=== PATIENT | female | born 1960 | race Two or more races ===

== ENCOUNTER 2019-01-17 14:46 | Emergency (ER) | payer OTHER ==
[2019-01-17 15:19] VITALS: TEMP 98; BMI 32.1
--- NOTE | 2019-01-17 16:00 | PDOC ---
History of Present Illness - General Chief Complaint: Chest Pain Stated Complaint: CHEST PRESSURE Time Seen by Provider: 01/17/19 15:39 Past History - Past Medical History Allergies/Adverse Reactions: Allergies Allergy/AdvReac Type Severity Reaction Status Date / Time No Known Allergies Allergy Verified 07/29/16 18:27 Home Medications: Ambulatory Orders Albuterol Sulfate Inhaler - [Ventolin Hfa Inhaler -] 1 - 2 inh PO QID 01/17/19 Cholecalciferol (Vitamin D3) [Vitamin D3] 2,000 unit PO DAILY 01/17/19 Diclofenac Sodium 75 mg PO DAILY 01/17/19 Enalapril Maleate 5 mg PO DAILY 01/17/19 Enalapril Maleate [Vasotec -] 5 mg PO DAILY 01/17/19 Fluticasone Furoate [Children's Flonase Sensimist] 5.9 ml NS BID 01/17/19 Fluticasone Propionate [Flovent Diskus] 50 mcg IH DAILY 01/17/19 Glipizide/Metformin HCl [Glipizide-Metformin 5-500 mg] 1 each PO BID 01/17/19 Ibuprofen [Motrin -] 800 mg PO TID 01/17/19 Linaclotide [Linzess] 72 mcg PO DAILY 01/17/19 Oxycodone HCl/Acetaminophen [Percocet 10-325 mg Tablet] 1 each PO DAILY Simvastatin 40 mg PO DAILY 01/17/19 Sucralfate Oral Suspension [Carafate *Oral Susp*] 1 gm PO BID 01/17/19 Anemia: No Asthma: No Cancer: No Cardiac Disorders: No CVA: No COPD: No CHF: No Dementia: No Diabetes: Yes GI Disorders: Yes (GERD) Disorders: No HTN: Yes Hypercholesterolemia: Yes Liver Disease: No Seizures: No Thyroid Disease: No - Surgical History Abdominal Surgery: No Appendectomy: No Cardiac Surgery: No Cholecystectomy: No Lung Surgery: No Neurologic Surgery: No Orthopedic Surgery: No - Immunization History Immunization Up to Date: Yes - Suicide/Smoking/Psychosocial Hx Smoking History: Never smoked Have you smoked in the past 12 months: No Information on smoking cessation initiated: No Hx Alcohol Use: No Drug/Substance Use Hx: No Substance Use Type: None Hx Substance Use Treatment: No *Physical Exam - Vital Signs Last Vital Signs Temp Pulse Resp BP Pulse Ox 98 F 73 20 128/84 95 01/17/19 15:16 01/17/19 15:16 01/17/19 15:16 01/17/19 15:16 01/17/19 15:16 Moderate Sedation - Procedure Monitoring Vital Signs: Procedure Monitoring Vital Signs Temperature 98 F 01/17/19 15:16 Pulse Rate 73 01/17/19 15:16 Respiratory Rate 20 01/17/19 15:16 Blood Pressure 128/84 01/17/19 15:16 O2 Sat by Pulse Oximetry (%) 95 01/17/19 15:16 ED Treatment Course - LABORATORY CBC & Chemistry Diagram: 01/17/19 16:43 01/17/19 16:41 *DC/Admit/Observation/Transfer Diagnosis at time of Disposition: Atypical chest pain - Discharge Dispostion Disposition: HOME Condition at time of disposition: Good Decision to Admit order: No - Referrals Referrals: Dre Rutherford MD [Primary Care Provider] - - Patient Instructions Printed Discharge Instructions: DI for Atypical Chest Pain Additional Instructions: Hoy te vieron por dolor en el pecho despus de que te vieran los doctores. DiGiorno y Shawn. Carlton anlisis de mehrdad, EKG y radiografa de trax fueron normales. No es probable que lobito sntomas se deban a un problema con el corazn o los pulmones. El dolor es probablemente un dolor muscular que empeora con la tos. Contine tomando todos lobito medicamentos caseros melanie lo prescribi carlton mdico de atencin primaria. Hoy no se hicieron cambios a carlton rgimen. ASEGRESE DE KATELYNN CARLTON OMEPRAZOLE TODOS LOS NÚÑEZ. Puede katelynn el contador de Tylenol segn sea necesario para el dolor. Katelynn melanie se indica en el prospecto. No exceda la dosis recomendada. Kandy un seguimiento con carlton mdico de atencin primaria en los prximos 3 a 4 núñez. Tendr que llamar para hacer levi percy. El nmero est incluido en anthony paquete. Levi copia de los resultados de hoy se adjunta a anthony paquete. Llvelo a la percy para que carlton mdico pueda revisarlos. Vaya al departamento de emergencias ms reid si carlton afeccin empeora o si marc que necesita levi evaluacin de emergencia adicional. You were seen today for chest pain after you were seen by Drs. Colvin and Shawn. Your blood work, EKG, and chest xray were normal. Your symptoms are not likely to because of a problem with your heart or lungs. The pain is likely a muscle pain made worse by coughing. Continue taking all of your home medications as your primary care doctor prescribed. No changes were made today to your regimen. BE SURE TO TAKE YOUR OMEPRAZOLE EVERYDAY. You can take over the counter Tylenol as needed for pain. Take as directed on the package insert. Do not exceed the recommended dosage. Follow up with your primary care doctor within the next 3-4 days. You will need to call to make an appointment. The number is included in this packet. A copy of todays results are attached to this packet. Take it to the appointment so your doctor can review them. Go to the nearest emergency department if your condition worsens or you feel like you need additional emergency evaluation. Print Language: CHILEAN - Post Discharge Activity
[2019-01-17] MEDS ORDERED: IBUPROFEN 600 MG TABLET (FP) PO ONE ×2 (16:07→16:42)
--- NOTE | 2019-01-17 16:19 | PDOC ---
Attending Attestation - Physicial Exam PE: 01/17/19 17:15 GENERAL: Awake, alert, and fully oriented, in no acute distress HEAD: No signs of trauma EYES: PERRLA, EOMI, sclera anicteric, conjunctiva clear ENT: Auricles normal inspection, hearing grossly normal, nares patent, oropharynx clear without exudates. Moist mucosa NECK: Normal ROM, supple, no lymphadenopathy, JVD, or masses LUNGS: Breath sounds equal, clear to auscultation bilaterally. No wheezes, and no crackles HEART: (+)Reproducible anterior chest wall pain. Regular rate and rhythm, normal S1 and S2, no murmurs, rubs or gallops ABDOMEN: Soft, nontender, normoactive bowel sounds. No guarding, no rebound. No masses EXTREMITIES: Normal range of motion, no edema. No clubbing or cyanosis. No cords, erythema, or tenderness NEUROLOGICAL: Cranial nerves II through XII grossly intact. Normal speech. SKIN: Warm, Dry, normal turgor, no rashes or lesions noted <Arely Leonardo - Last Filed: 01/17/19 17:15> - Resident Resident Name: Humberto Phelps - ED Attending Attestation I have performed the following: I have examined & evaluated the patient, The case was reviewed & discussed with the resident, I agree w/resident's findings & plan, Exceptions are as noted - HPI HPI: 01/17/19 20:51 58yo female with cp/cough/burning sensation since tuesday/tuesday. Pt states she stopped her meds because of gi upset. Started with burning sensation in chest, then cough- white sputum, and cp-anterior wall that is reproducible. Pt denies f/c. No n/v/d. No dysuria. No sore throat or rhinorrhea. Pt is nontoxic in appearance. No rash. Reproducible anterior chest wall pain. Stopped her omeprazole as well. - Medical Decision Making 01/17/19 16:19 I, Dr. Tita Brown, DO, attest that this document has been prepared under my direction and personally reviewed by me in its entirety. I further attest, that it accurately reflects all work, treatment, procedures and medical decision -making performed by me. 01/17/19 17:03 a/p: 58yo female with anterior cp, cough, and acid reflux since tuesday -reproducible anterior chest wall pain -lungs cta -initially started as acid reflux- scheduled for esophagram tomorrow with Dr. Huff -sent from PMD for abnl ekg- unchanged from prior and atypical cp -will send labs, will discuss with GI, will discuss with PMD -ekg, cxr, labs 01/17/19 18:05 trop is negative 01/17/19 20:51 repeat trop negative pt feeling better pt has been noncompliant with meds pt has appt for esophagram scheduled for tomorrow cp improved with meds stable for dc to home <Tita Brown - Last Filed: 01/17/19 20:58> Heart Score/ECG Review - ECG Intrepretation Comment:: 01/17/19 17:09 sinus at 69, nl axis, nl interval, no acute st/t wave findings, unchanged from EKG from jul <Tita Brown - Last Filed: 01/17/19 20:58> Attestations - Attestations 01/17/19 17:17 Documentation prepared by Arely Leonardo, acting as medical doctor nuclear medicine for Tita Brown DO. <Arely Leonardo - Last Filed: 01/17/19 17:15>
[2019-01-17] MEDS ORDERED: LIDOCAINE VISCOUS 2% ORAL/TOP 20 ML UNIT-DOSE CUP MM ONE (17:02)
[2019-01-17] MEDS ORDERED: MAG HYDROX/AL HYDROX/SIMETH 30 ML UNIT-DOSE CUP PO ONE (17:02)
[2019-01-17 17:05] LABS: BASO % 0.3 % (0-2.0); EOS % 0.8 % (0-4.5); HEMATOCRIT 43.6 % (32.4-45.2); HEMOGLOBIN 15.1 GM/dL (10.7-15.3); LYMPH % 27.1 % (8-40); MCH 32.4 pg (25.7-33.7); MCHC 34.7 g/dl (32.0-36.0); MEAN CELL VOLUME 93.4 fl (80-96); MEAN PLT VOLUME 9.5 fl (7.5-11.1); MONO % 8.4 % (3.8-10.2); NEUT % 63.4 % (42.8-82.8); PLATELET COUNT 209 K/MM3 (134-434); RBC 4.67 M/mm3 (3.60-5.2); WHITE BLOOD COUNT 10.9 K/mm3 (4.0-10.0)
[2019-01-17] MEDS ORDERED: LIDOCAINE VISCOUS 2% ORAL/TOP 20 ML UNIT-DOSE CUP ONE (17:15)
[2019-01-17] MEDS ORDERED: MAG HYDROX/AL HYDROX/SIMETH 30 ML UNIT-DOSE CUP ONE (17:16)
[2019-01-17 17:25] LABS: INR 0.97 (0.83-1.09); PROTHROMBIN TIME (PATIENT) 11.5 SEC (9.7-13.0)
[2019-01-17 17:32] LABS: ALBUMIN 4.1 g/dl (3.4-5.0); ALK PHOS 91 U/L (45-117); ANION GAP 4 MMOL/L (8-16); BILIRUBIN,TOTAL 0.7 mg/dL (0.2-1); BLOOD UREA NITROGEN 21 mg/dL (7-18); CALCIUM 9.9 mg/dL (8.5-10.1); CHLORIDE 102 mmol/L (98-107); CO2 32 mmol/L (21-32); CREATININE 0.8 mg/dL (0.55-1.3); GLUCOSE,RANDOM 124 mg/dL (74-106); POTASSIUM 4.7 mmol/L (3.5-5.1); SGOT/AST 15 U/L (15-37); SGPT/ALT 25 U/L (13-61); SODIUM 138 mmol/L (136-145); TOT PROT 7.6 g/dl (6.4-8.2)
[2019-01-17 18:28] VITALS: BP 150/78; PULSE 74
--- NOTE | 2019-01-18 11:01 | EKG ---
Test Reason : Blood Pressure : / mmHG Vent. Rate : 069 BPM Atrial Rate : 069 BPM P-R Int : 160 ms QRS Dur : 102 ms QT Int : 388 ms P-R-T Axes : 036 -02 036 degrees QTc Int : 415 ms NORMAL SINUS RHYTHM NORMAL ECG WHEN COMPARED WITH ECG OF 29-JUL-2016 18:29, NO SIGNIFICANT CHANGE WAS FOUND Confirmed by SHARLENE SENA MD ([id number]) on 01/18/2019 11:01:04 AM Referred By: Confirmed By:SHARLENE SENA MD
== END 2019-01-17 21:05 | disposition home or self-care (01) ==
LOC: JER 14:46
DX: R07.89 Other chest pain (principal); E11.9 Type 2 diabetes mellitus without complications; E78.00 Pure hypercholesterolemia, unspecified; K21.9 Gastro-esophageal reflux disease without esophagitis
CPT/HCPCS: 36415; 71046-TC-FY; 80053; 84484; 85025; 85610; 85730; 93005; 93010; 99284-25

== ENCOUNTER 2019-05-05 10:50 | Emergency (ER) | payer OTHER ==
[2019-05-05 11:00] VITALS: TEMP 99.5; BMI 32.3
--- NOTE | 2019-05-05 11:35 | PDOC ---
History of Present Illness - General Chief Complaint: Respiratory Stated Complaint: HEADACHE/DIFF BREATHING Time Seen by Provider: 05/05/19 11:34 History Source: Patient Exam Limitations: No Limitations - History of Present Illness Initial Comments: 05/05/19 11:47 CHIEF COMPLAINT: Cough HISTORY OF PRESENT ILLNESS: This is a 58-year-old female with a history of high blood pressure, [id number] diabetes, and asthma (no admissions, uses albuterol inhaler prn) who presents complaining of 9 days of cough productive cough green sputum which she describes as smelling bad, shortness of breath, and chest pain which began after several days of coughing. She denies fevers but has had some chills. She denies hemoptysis, calf pain, lower extremity edema , palpitations, or any other symptoms. Vital signs on arrival are notable for heart rate of 110 and blood pressure 173/ 93. REVIEW OF SYSTEMS: GENERAL/CONSTITUTIONAL: Chills, no fevers. No weakness. No weight change. HEAD, EYES, EARS, NOSE AND THROAT: No change in vision. No ear pain or discharge. No sore throat. CARDIOVASCULAR: Chest pain, no palpitations or edema. RESPIRATORY: See HPI. GASTROINTESTINAL: No nausea, vomiting, diarrhea or constipation. GENITOURINARY: No dysuria, frequency, or change in urination. MUSCULOSKELETAL: No joint or muscle swelling or pain. No neck or back pain. SKIN: No rash or easy bruising. NEUROLOGIC: Headache. No neck pain, vertigo, loss of consciousness, or loss of sensation. PSYCHIATRIC: No depression or anxiety. ENDOCRINE: No increased thirst. No abnormal weight change. HEMATOLOGIC/LYMPHATIC: No anemia, easy bleeding, or history of blood clots. ALLERGIC/IMMUNOLOGIC: No hives or skin allergy. No latex allergy. PHYSICAL EXAM: GENERAL: The patient is awake, alert, and fully oriented, in no acute distress. HEAD: Normal with no signs of trauma. ENT: Pupils equal, round and reactive to light, extraocular movements intact, sclera anicteric, conjunctiva clear. Neck supple. LUNGS: Clear to auscultation bilaterally. Normal excursion. No respiratory distress or use of accessory muscles. CV: RRR, S1/S2, no MRG. Cap refill < 2 sec. ABDOMEN: Soft, non-distended, non-tender. EXTREMITIES: Normal range of motion, no edema. NEUROLOGICAL: Normal speech, normal gait. CN II-XII grossly intact. PSYCH: Normal mood, normal affect. SKIN: Warm, dry, normal turgor, no rashes or lesions noted. Past History - Past Medical History Allergies/Adverse Reactions: Allergies Allergy/AdvReac Type Severity Reaction Status Date / Time No Known Allergies Allergy Verified 05/05/19 10:58 Home Medications: Ambulatory Orders Albuterol Sulfate Inhaler - [Ventolin Hfa Inhaler -] 1 - 2 inh PO QID 01/17/19 Cholecalciferol (Vitamin D3) [Vitamin D3] 2,000 unit PO DAILY 01/17/19 Diclofenac Sodium 75 mg PO DAILY 01/17/19 Enalapril Maleate 5 mg PO DAILY 01/17/19 Enalapril Maleate [Vasotec -] 5 mg PO DAILY 01/17/19 Fluticasone Furoate [Children's Flonase Sensimist] 5.9 ml NS BID 01/17/19 Fluticasone Propionate [Flovent Diskus] 50 mcg IH DAILY 01/17/19 Glipizide/Metformin HCl [Glipizide-Metformin 5-500 mg] 1 each PO BID 01/17/19 Ibuprofen [Motrin -] 800 mg PO TID 01/17/19 Linaclotide [Linzess] 72 mcg PO DAILY 01/17/19 Oxycodone HCl/Acetaminophen [Percocet 10-325 mg Tablet] 1 each PO DAILY Simvastatin 40 mg PO DAILY 01/17/19 Sucralfate Oral Suspension [Carafate *Oral Susp*] 1 gm PO BID 01/17/19 Azithromycin 250 mg PO DAILY #4 tablet 05/05/19 Prednisone [Deltasone] 40 mg PO DAILY #8 tablet 05/05/19 Anemia: No Asthma: Yes Cancer: No Cardiac Disorders: No CVA: No COPD: No CHF: No Dementia: No Diabetes: Yes GI Disorders: Yes (GERD) Disorders: No HTN: Yes Hypercholesterolemia: Yes Liver Disease: No Seizures: No Thyroid Disease: No - Surgical History Abdominal Surgery: No Appendectomy: No Cardiac Surgery: No Cholecystectomy: No Lung Surgery: No Neurologic Surgery: No Orthopedic Surgery: No - Immunization History Immunization Up to Date: Yes - Suicide/Smoking/Psychosocial Hx Smoking History: Never smoked Have you smoked in the past 12 months: No Hx Alcohol Use: No Drug/Substance Use Hx: No Substance Use Type: None Hx Substance Use Treatment: No *Physical Exam - Vital Signs Last Vital Signs Temp Pulse Resp BP Pulse Ox 99.5 F 110 H 18 173/93 H 98 05/05/19 10:55 05/05/19 10:55 05/05/19 10:55 05/05/19 10:55 05/05/19 10:55 ED Treatment Course - LABORATORY CBC & Chemistry Diagram: 05/05/19 12:30 05/05/19 12:30 - RADIOLOGY Radiology Studies Ordered: Category Date Time Status CHEST PA & LAT [RAD] Stat Radiology 05/05/19 11:35 Ordered Medical Decision Making - Medical Decision Making 05/05/19 13:29 A/P: 58-year-old female with history of asthma presenting with 9 days of productive cough not relieved with albuterol MDI. 1. EKG 2. Labs including CBC, CMP, BNP, troponin) chest pain) 3. Chest x-ray 4. DuoNeb and guaifenesin AC for cough 5. Re-assess Troponin negative, BNP within normal limits. Chest x-ray without infiltrate or evidence of pulmonary vascular congestion. Cough improved with meds. 05/05/19 13:31 Repeat vital signs: Heart rate 94, blood pressure 143/84. *DC/Admit/Observation/Transfer Diagnosis at time of Disposition: Cough - Discharge Dispostion Disposition: HOME Condition at time of disposition: Stable Decision to Admit order: No - Prescriptions Prescriptions: Azithromycin 250 mg PO DAILY #4 tablet Prednisone [Deltasone] 40 mg PO DAILY #8 tablet - Referrals Referrals: Dre Rutherford MD [Primary Care Provider] - 1 week - Patient Instructions Printed Discharge Instructions: DI for Acute Bronchitis Additional Instructions: Rest and stay well hydrated Take prednisone as prescribed-be aware that this may raise her blood sugar, so watch her diet carefully Take azithromycin for bronchitis as prescribed Use cough syrup at bedtime Return here for difficulty breathing, chest pain, fever, or any other concerning symptoms - Post Discharge Activity
[2019-05-05] MEDS ORDERED: ALBUTEROL SO4 2.5/IPRATROPIUM 0.5 INH SOL 3 ML VIAL.NEB. NEB ONE ×2 (11:53→12:12)
[2019-05-05] MEDS ORDERED: guaiFENesin/CODEINE 10 ML UNIT-DOSE CUPS PO ONE (11:53)
[2019-05-05] MEDS ORDERED: guaiFENesin/CODEINE 5 ML UNIT-DOSE CUPS PO ONE (12:13)
[2019-05-05 12:44] LABS: BASO % 0.4 % (0-2.0); EOS % 1.2 % (0-4.5); HEMOGLOBIN 13.8 GM/dL (10.7-15.3); LYMPH % 21.8 % (8-40); MCH 30.9 pg (25.7-33.7); MCHC 33.5 g/dl (32.0-36.0); MEAN PLT VOLUME 9.7 fl (7.5-11.1); MONO % 11.6 % (3.8-10.2); RBC 4.46 M/mm3 (3.60-5.2); RDW 13.2 % (11.6-15.6)
[2019-05-05 12:50] LABS: PH,URINE 5.5 (5.0-8.0); URINE APPEARANCE CLEAR; URINE BILIRUBIN NEGATIVE (NEGATIVE); URINE COLOR YELLOW; URINE GLUCOSE (UA) NEGATIVE (NEGATIVE); URINE KETONE NEGATIVE (NEGATIVE); URINE LEUK ESTERASE NEGATIVE (NEGATIVE); URINE NITRITE NEGATIVE (NEGATIVE); URINE PROTEIN NEGATIVE (NEGATIVE); URINE UROBILINOGEN 0.2 mg/dL (0.2-1.0)
[2019-05-05 12:55] LABS: PLATELET COUNT 220 K/MM3 (134-434)
[2019-05-05 13:13] LABS: ALBUMIN 4.1 g/dl (3.4-5.0); ALK PHOS 104 U/L (45-117); ANION GAP 7 MMOL/L (8-16); BILIRUBIN,TOTAL 0.6 mg/dL (0.2-1); CALCIUM 9.2 mg/dL (8.5-10.1); CHLORIDE 105 mmol/L (98-107); CO2 30 mmol/L (21-32); CREATININE 0.8 mg/dL (0.55-1.3); GLUCOSE,RANDOM 170 mg/dL (74-106); N-TERMINAL BNP 23.5 pg/ml (5-125); POTASSIUM 4.3 mmol/L (3.5-5.1); SGOT/AST 14 U/L (15-37); SGPT/ALT 26 U/L (13-61); SODIUM 141 mmol/L (136-145); TOT PROT 7.1 g/dl (6.4-8.2)
[2019-05-05] MEDS ORDERED: predniSONE 20 MG TABLET (UD) PO ONE (13:45)
[2019-05-05] MEDS ORDERED: AZITHROMYCIN 250 MG TABLET PO ONE (13:45)
[2019-05-05 14:40] VITALS: BP 128/80; PULSE 78
--- NOTE | 2019-05-06 13:11 | EKG ---
Test Reason : Blood Pressure : / mmHG Vent. Rate : 098 BPM Atrial Rate : 098 BPM P-R Int : 158 ms QRS Dur : 102 ms QT Int : 370 ms P-R-T Axes : 054 -10 026 degrees QTc Int : 472 ms NORMAL SINUS RHYTHM INFERIOR INFARCT , AGE UNDETERMINED ABNORMAL ECG WHEN COMPARED WITH ECG OF 17-JAN-2019 15:04, QT HAS LENGTHENED Confirmed by MD BRYSON, NATHAN ([id number]) on 05/06/2019 1:11:53 PM Referred By: Confirmed By:NATHAN MASSEY MD
== END 2019-05-05 14:30 | disposition home or self-care (01) ==
LOC: JER 10:50
PROC: 3E0F7GC Introduction of Other Therapeutic Substance into Respiratory Tract, Via Natural or Artificial Opening (ICD-10-PCS; principal; 2019-05-05)
DX: J20.9 Acute bronchitis, unspecified (principal); I10 Essential (primary) hypertension; E78.00 Pure hypercholesterolemia, unspecified; E11.9 Type 2 diabetes mellitus without complications; Z79.84 Long term (current) use of oral hypoglycemic drugs; J45.909 Unspecified asthma, uncomplicated
CPT/HCPCS: 36415; 71046-TC-FY; 80053; 81003; 83880; 84484; 85025; 87899; 93005; 93010; 94640; 99281-25

== ENCOUNTER 2020-10-01 14:29 | Emergency (ER) | payer OTHER ==
[2020-10-01 14:47] VITALS: BP 183/91; PULSE 87; BMI 31.9
== END 2020-10-01 15:59 | disposition home or self-care (01) ==
LOC: JERFT 14:29
DX: R05 Cough (principal)
CPT/HCPCS: 99283-25; C9803; U0003

== ENCOUNTER 2020-10-27 04:47 | Day surgery (SDC) | payer OTHER ==
[2020-10-20 15:49] VITALS: BMI 31.4
[2020-10-27] MEDS ORDERED: MIDAZOLAM HCL 2 MG/2 ML SINGLE DOSE VIAL ONE ×2 (12:35→12:43)
[2020-10-27] MEDS ORDERED: PROPOFOL 20 ML ONE (13:03)
[2020-10-27 15:11] VITALS: BP 130/80; PULSE 71; TEMP 97.1
== END 2020-10-27 14:15 | disposition home or self-care (01) ==
LOC: JASU-SURG 04:47
PROVIDERS: ATTEND Urology
PROC: 0TF3XZZ Fragmentation in Right Kidney Pelvis, External Approach (ICD-10-PCS; principal; 2020-10-27 11:00)
DX: N20.0 Calculus of kidney (principal)
CPT/HCPCS: 82962

== ENCOUNTER 2020-12-08 04:27 | Day surgery (SDC) | payer OTHER ==
[2020-12-04 19:11] VITALS: BMI 32.4
[2020-12-08] MEDS ORDERED: MIDAZOLAM HCL 2 MG/2 ML SINGLE DOSE VIAL ONE (11:45)
[2020-12-08] MEDS ORDERED: PROPOFOL 20 ML ONE ×2 (11:45)
[2020-12-08] MEDS ORDERED: ALBUTEROL SO4 HFA INHALER IH PRN (12:58)
[2020-12-08 13:12] VITALS: TEMP 96.6
[2020-12-08 13:58] VITALS: BP 143/72; PULSE 87
== END 2020-12-08 14:18 | disposition home or self-care (01) ==
LOC: JASU-SURG 04:27
PROVIDERS: ATTEND Urology
PROC: 0TF4XZZ Fragmentation in Left Kidney Pelvis, External Approach (ICD-10-PCS; principal; 2020-12-08 11:00)
DX: N20.0 Calculus of kidney (principal); E11.9 Type 2 diabetes mellitus without complications

== ENCOUNTER 2022-01-04 04:28 | Day surgery (SDC) | payer OTHER ==
[2021-12-31 17:18] VITALS: BMI 30.7
[2022-01-04] MEDS ORDERED: MIDAZOLAM HCL 2 MG/2 ML SINGLE DOSE VIAL ONE (13:52)
[2022-01-04 15:37] VITALS: BP 134/72; PULSE 72; TEMP 97.9
== END 2022-01-04 15:38 | disposition home or self-care (01) ==
LOC: JASU-SURG 04:28
PROVIDERS: ATTEND Urology
PROC: 0TF3XZZ Fragmentation in Right Kidney Pelvis, External Approach (ICD-10-PCS; principal; 2022-01-04 13:00)
DX: N20.0 Calculus of kidney (principal)
CPT/HCPCS: 82962

== ENCOUNTER 2023-03-29 03:38 | Day surgery (SDC) | payer OTHER ==
[2023-03-23 16:41] VITALS: BMI 29.2
[2023-03-29] MEDS ORDERED: MIDAZOLAM HCL 2 MG/2 ML SINGLE DOSE VIAL ONE ×2 (08:38→09:28)
[2023-03-29] MEDS ORDERED: PROPOFOL 20 ML ONE (08:39)
[2023-03-29] MEDS ORDERED: DEXTROSE 5%-0.45% SALINE 1,000 ML IV SCH (08:45)
[2023-03-29] MEDS ORDERED: ELECTROLYTE-148 SOLN 1,000 ML IV SCH (08:45)
[2023-03-29 11:08] VITALS: RESP 18
[2023-03-29 11:13] VITALS: BP 135/75; PULSE 73; TEMP 97.9
== END 2023-03-29 10:52 | disposition home or self-care (01) ==
LOC: JASU-SURG 03:38
PROVIDERS: ATTEND Urology
PROC: 0TF3XZZ Fragmentation in Right Kidney Pelvis, External Approach (ICD-10-PCS; principal; 2023-03-29 08:45)
DX: N20.0 Calculus of kidney (principal)
CPT/HCPCS: 82962

== ENCOUNTER 2023-04-12 04:30 | Day surgery (SDC) | payer OTHER ==
[2023-04-11 17:31] VITALS: BMI 29.0
[2023-04-12] MEDS ORDERED: PROPOFOL 40 ML ONE (10:34)
[2023-04-12] MEDS ORDERED: ceFAZolin SODIUM 1 GM VIAL IVPB ONE (10:55)
[2023-04-12] MEDS ORDERED: IOHEXOL 300 MG/ML INFUS..BTL IJ ONE (10:57)
[2023-04-12] MEDS ORDERED: ACETAMINOPHEN 500 MG TABLET (FP) PO PRN (12:05)
[2023-04-12] MEDS ORDERED: ONDANSETRON 4 MG/2 ML VIAL IVPUSH PRN (12:05)
[2023-04-12] MEDS ORDERED: oxyCODONE HCL 5 MG TABLET PO PRN (12:05)
[2023-04-12] MEDS ORDERED: PROMETHAZINE HCL 25 MG/1 ML VIAL IVPB PRN (12:05)
[2023-04-12] MEDS ORDERED: ELECTROLYTE-148 SOLN 1,000 ML IV SCH (12:15)
[2023-04-12] MEDS ORDERED: LACTATED RINGERS SOLUTION 1,000 ML IV SCH (12:15)
[2023-04-12] MEDS ORDERED: ACETAMINOPHEN INJECTION 100 ML IVPB ONE (14:04)
[2023-04-12] MEDS ORDERED: oxyCODONE HCL 5 MG TABLET ONE ×2 (14:04→15:25)
[2023-04-12] MEDS ORDERED: oxyCODONE HCL 5 MG TABLET PO ONE (15:23)
[2023-04-12 18:34] VITALS: RESP 20; TEMP 97.8
[2023-04-12 18:37] VITALS: BP 139/64; PULSE 80
== END 2023-04-12 15:55 | disposition home or self-care (01) ==
LOC: JASU-SURG 04:30
PROVIDERS: ATTEND Urology
PROC: 0TC68ZZ Extirpation of Matter from Right Ureter, Via Natural or Artificial Opening Endoscopic (ICD-10-PCS; principal; 2023-04-12 11:00)
PROC: 0T768DZ Dilation of Right Ureter with Intraluminal Device, Via Natural or Artificial Opening Endoscopic (ICD-10-PCS; 2023-04-12 11:00)
DX: N20.1 Calculus of ureter (principal)
CPT/HCPCS: 76000-TC-FY; 82962; 94760; C2617